=== PATIENT | male | born 1950 | race Caucasian/White ===

== ENCOUNTER 2024-06-26 12:57 | Emergency (ER) | payer MEDICARE, BC ==
[2024-06-26] MEDS: Diphtheria,Pertussis(Acell),Tetanus Vaccine 0.5 ML Syringe IM ONE (13:44)
[2024-06-26] MEDS: Lidocaine 1% 5 ML VIAL INJECT ONE (13:45)
[2024-06-26] MEDS: Bacitracin Oint 1 GM U/D Packet TOP ONE (16:02)
== END 2024-06-26 16:18 | disposition home or self-care (01) ==
LOC: JP.ED 12:57
DX: S61.211A Laceration without foreign body of left index finger without damage to nail, initial encounter (principal); Z23 Encounter for immunization; E78.00 Pure hypercholesterolemia, unspecified; Z79.899 Other long term (current) drug therapy; Z87.891 Personal history of nicotine dependence; W22.8XXA Striking against or struck by other objects, initial encounter
CPT/HCPCS: 12002; 73140-26-F1; 73140-F1; 90471; 90715; 99283-25